=== PATIENT | male | born 1995 | race Caucasian/White ===

== ENCOUNTER 2022-07-05 18:58 | Observation (INO) | payer SELFPAY ==
--- NOTE | ~2022-07-05 | US_ITS ---
EXAMINATION: US carotid duplex BI DATE: 07/06/2022 08:03 INDICATION: Confusion. TECHNIQUE: Grayscale, color Doppler, and pulsed Doppler images of the cervical carotid arteries were obtained. The degree of vessel stenosis is placed in one of the following categories: normal, <50%, 5 0-69%, >=70% but less than near-occlusion, near-occlusion, or total occlusion. Note that percent sten osis relative to normal distal artery lumen diameter is indirectly measured from velocity measurement s as described by Yuri, et al. Radiology 2003; 229:340-346. COMPARISON: None. FINDINGS: RIGHT: The right common carotid artery (CCA) peak systolic velocity (PSV) is 92 cm/s. The right internal car otid artery (ICA) PSV is 73 cm/s. The right ICA end-diastolic velocity (EDV) is 19 cm/s. The right IC A/CCA PSV ratio is 0.8. Grayscale and color Doppler images yield an estimate of 0% diameter reduction from plaque in the ICA. There is antegrade flow in the right vertebral artery. LEFT: The left CCA PSV is 115 cm/s. The left ICA PSV is 76 cm/s. The left ICA EDV is 25 cm/s. The left ICA/ CCA PSV ratio is 0.7. Grayscale and color Doppler images yield an estimate of 0% diameter reduction f rom plaque in the ICA. There is antegrade flow in the left vertebral artery. IMPRESSION: 1. Normal internal carotid arteries. Reviewed, dictated and finalized at location A.
--- NOTE | ~2022-07-05 | CT_ITS ---
EXAMINATION: CT brain wo con DATE: 07/05/2022 20:17 INDICATION: confusion . TECHNIQUE: Computed tomography (CT) of the head was performed without intravenous contrast. The mA wa s adjusted according to patient size. Iterative reconstruction technique was employed. The dose-lengt h product was 605.33 mGy-cm. COMPARISON: None FINDINGS: No acute intracranial hemorrhage or extra-axial fluid collection. No hydrocephalus, mass, or herniation. No acute ischemic infarct. Unremarkable dural venous sinus attenuation. No acute osseous abnormality. The aerated spaces are clear. IMPRESSION: No acute intracranial process. Reviewed, dictated and finalized at location K.
--- NOTE | ~2022-07-05 | MR_ITS ---
EXAMINATION: MR brain/brain stem wo/w con DATE: 07/06/2022 07:45 INDICATION: Confusion. TECHNIQUE: Magnetic resonance imaging (MRI) of the brain and brainstem was performed without and with 15 mL MultiHance intravenous contrast. COMPARISON: Head CT 07/05/2022 FINDINGS: There is no intracranial hemorrhage, acute infarction, or abnormal intracranial mass lesion . The ventricles are normal in size. The orbits are normal. The paranasal sinuses are clear. The mast oid air cells are normal. IMPRESSION: 1. Normal brain. Reviewed, dictated and finalized at location A. IMPRESSION: 1. Normal brain.
[2022-07-05 19:10] VITALS: BP 198/111
[2022-07-05 19:11] VITALS: BP 186/112; PULSE 94; RESP 18; TEMP 36.8; O2SAT 100
[2022-07-05 19:32] VITALS: PULSE 85
[2022-07-05 20:00] LABS: Basophils Absolute Auto 0.1 K/mm3 (0.0-0.1); Basophils Percent Auto 0.8 % (0.2-1.2); Eosinophils Absolute Auto 0.2 K/mm3 (0-0.3); Eosinophils Percent Auto 3.1 % (0-4.4); Hematocrit 43.2 % (42.0-52.0); Hemoglobin 14.6 g/dL (14.0-18.0); Immature Granulocyte Absolute 0.02 K/mm3 (0.00-0.031); Immature Granulocyte Percent A 0.3 % (0-0.5); Lymphocytes Absolute Auto 1.63 K/mm3 (0.9-3.2); Lymphocytes Percent Auto 21.4 % (18.3-44.2); Mean Corpuscular HGB Conc 33.8 g/dl (32-36); Mean Corpuscular Hemoglobin 29.3 pg (26-34); Mean Corpuscular Volume 86.6 fl (80-100); Mean Platelet Volume 9.3 fl (7.4-10.4); Monocytes Absolute Auto 0.6 K/mm3 (0.1-0.6); Monocytes Percent Auto 8.4 % (2.6-8.5); Platelet Count Result 207 k/mm3 (150-375); Red Blood Count 4.99 M/mm3 (4.6-6.20); Red Cell Distribution Width 11.8 % (11.5-14.5); White Blood Count 7.6 K/mm3 (4.5-10.0)
--- NOTE | 2022-07-05 20:07 | ED.GENADULT ---
HPI - General Adult General Chief complaint: Unspecified Stated complaint: confusion Time Seen by Provider: 07/05/22 19:38 History of Present Illness HPI narrative: 26-year-old male presenting to the emergency department for evaluation of altered mental status and confusion. Patient states has this been ongoing for the last 3 days. Patient states he does have moments of clarity but then has moments of confusion. Patient states he has been sleeping more frequently and waking up in different locations. Patient states he did have loss of bladder control at night. Patient was alert and oriented for the nurses on initial evaluation but during my examination patient states he does not know the year or the president. 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 Patient denies any underlying psychiatric history. Patient has been taking doxycycline for the last 2 weeks for a folliculitis but denies any other drugs. Related Data Home Medications Medication Instructions Recorded Confirmed doxycycline monohydrate 100 mg 100 mg PO DAILY 07/05/22 07/06/22 capsule Allergies Allergy/AdvReac Type Severity Reaction Status Date / Time No Known Allergies Allergy Verified 07/05/22 19:19 Review of Systems Review of Systems: CONSTITUTIONAL: Denies fever, chills, or sweats. EYES: Denies visual changes, redness, or discharge. ENT: Denies rhinorrhea, congestion, sore throat, or otalgia. CARDIOVASCULAR: Denies chest pain, palpitations, or edema. RESPIRATORY: Denies cough or dyspnea. GASTROINTESTINAL: Denies abdominal pain, nausea, vomiting, or diarrhea. GENITOURINARY: Denies dysuria or hematuria. SKIN: Denies rash or itching. MUSCULOSKELETAL: Denies back pain, joint pain, or myalgia. NEUROLOGIC: Denies headache, numbness, or weakness. Increased confusion PSYCHIATRIC: See HPI ON LICENSE OF [facility] Surgical History Surgical History (Updated 07/05/22 @ 23:59 by Mariela Mejias NP) No pertinent past surgical history Family History Family History (Updated 07/06/22 @ 00:04 by Brian Valiente RN) Father Hypertension Mother Hypertension Grandparent Diabetes mellitus Social History Social History (Updated 07/06/22 @ 00:02 by Mariela Mejias NP) Social History: The patient is and he has 2 children. He has been dating as significant other for the last year. 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 He denies any tobacco marijuana or illicit drugs. He is a social drinker in rarely drinks. He does not have a durable power cardiology specialist for healthcare. Code status full code Smoking status: Never smoker Second hand tobacco smoke exposure: No Alcohol intake: current Drinks per week: 1 Substance use: never Spiritual care concerns: No Exam Narrative: APPEARANCE: Well appearing, no pain, no distress, well-nourished. HEAD: normocephalic, atraumatic. EYES: PERRLA/EOMI, conjunctivae clear. NOSE: Normal no drainage THROAT: Pharynx clear, no exudate. NECK: Supple. No adenopathy, no masses. RESPIRATORY: Airway patent, respirations nonlabored. Clear to auscultation bilaterally, no rales, rhonchi, wheezing. CARDIOVASCULAR: Regular rate and rhythm without murmurs rubs or gallops. ABDOMINAL: Soft, nontender, nondistended, normal bowel sounds MUSCULOSKELETAL: Moves all extremities. Strength/ROM intact, No edema, No calf tenderness. NEURO: Alert. Cranial nerves II through XII intact. Grossly intact. Patient disorientated SKIN: Warm, dry. Normal Color PSYCHIATRIC: Normal affect/mood. Course Course Emergency Course: Head CT was negative. Patient did have hypertension which was treated with hydralazine. Patient is afebrile with no leukocytosis. Patient's electrolytes are within normal limits. Patient's TSH was elevated but patient's free T4 was within normal limits. UA shows no evidence of urinary tract infection. Drug screen was negative. Pat
[2022-07-05 20:16] LABS: Lactic Acid Reflex 1.6 mmol/L (0.7-2.0)
[2022-07-05 20:17] LABS: Anion Gap 11 mmol/L (8-16); Bilirubin,Total 0.4 mg/dL (0.2-1.3); Blood Urea Nitrogen 15 mg/dL (9-20); Calcium 9.3 mg/dL (8.4-10.2); Carbon Dioxide 27 mmol/L (22-30); Chloride 103 mmol/L (98-107); Estimated CRCL calculation 80 ml/min; Estimated Glomerular Filt Rate > 60; Glucose 129 mg/dL (65-110); Potassium 3.7 mmol/L (3.4-5.0); Sodium 141 mmol/L (137-145)
[2022-07-05 20:18] LABS: Alanine Aminotransferase 22 U/L (6-50); Albumin Level 4.5 g/dL (3.5-5.1); Alkaline Phosphatase 54 U/L (38-126); Aspartate Amino Transferase 22 U/L (17-59)
[2022-07-05 20:28] LABS: Monoscreen Negative (Negative); Negative Monotest Control Negative (Negative); Positive Monotest Control Positive (Positive)
[2022-07-05 20:31] LABS: Appearance Urine Slightly Cloudy (Clear); Bilirubin Urine Negative (Negative); Blood Urine Negative (Negative); Color Urine Yellow (Yellow); Glucose Urine UA Negative (Negative); Ketones Urine Negative (Negative); Leukocyte Esterase Ur Negative LEU/UL (Negative); Nitrate Urine Negative (Negative); Protein Urine Negative (Negative); Specific Grav Ur >= 1.030 (1.001-1.035); Urobilinogen Urine 0.2 mg/dL (<2.0)
[2022-07-05 20:36] LABS: Mucus Urine Rare /lpf; RBC Urine 0-2 /hpf (0-2); WBC Urine 0-3 /hpf
[2022-07-05 20:37] LABS: Add Urine Microscopic? YES
[2022-07-05 20:40] LABS: Ammonia < 9 umol/L (9-30); Ethanol < 10 mg/dL (<10)
[2022-07-05 20:44] LABS: SARS-CoV-2 RNA PCR Negative
[2022-07-05 20:46] LABS: Amphetamine Screen Urine Negative (Negative); Barbiturate Screen Urine Negative (Negative); Benzodiazepines Screen Urine Negative (Negative); Cannabinoid Screen Urine Negative (Negative); Cocaine Screen Urine Negative (Negative); Methadone Screen Urine Negative (Negative); Opiate Screen Urine Negative (Negative); Phencyclidine Screen Urine Negative (Negative)
[2022-07-05] MEDS: SODIUM CHLORIDE 0.9% IV 1,000 ML 999 ML IV CONT (21:00)
[2022-07-05] MEDS: hydrALAZINE HCL 20 MG/ML VIAL 10 MG IV PUSH (21:31)
--- NOTE | 2022-07-05 21:37 | PC.NURSE ---
called lab @[phone] to add on Free T4 -[place]
[2022-07-05 22:03] LABS: Free T4 Free Thyroxine 1.01 ng/mL (0.78-2.19)
[2022-07-05 23:32] VITALS: BP 147/103; PULSE 78; RESP 18; O2SAT 98
--- NOTE | 2022-07-05 23:54 | PM.IMHP ---
H&P: HPI History of Present Illness Date/Time: 07/05/22 23:00 Chief Complaint: Possible seizure Narrative: This is a 26-year-old male patient who has no past medical history. 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 The patient was brought into the emergency room for evaluation of altered mental status and confusion. This is been going on for 3 days. Patient has some moments of clarity and then goes back to confusion. The patient recently was placed on doxycycline for folliculitis. The patient has been on doxycycline for the last 2 weeks. He states that he has been outside in the sun for several hours which makes him feel worse. He denies any other underlying psychiatric history. Initially the patient does not know who the president is or the date. Patient is now able to see who the president is but he thinks this is July. He is able to the site his name and his girlfriend's name and his date of . Earlier he had his children stated versus mixed up. The patient has been sleeping more frequently. He also had loss of bladder control at night. His TSH is 6.520. Ammonia is less than 9 otherwise his lab work is unremarkable. He is negative for COVID. Drug screen was negative. A consult was placed for neurology. Head CT was negative it shows no acute intracranial process. Patient was started on IV fluids and given hydralazine for blood pressure. The patient is complaining of a headache. The patient is being admitted for observation status on the date of service of 07/05/2022. Review of Systems Review of Systems: See HPI All systems reviewed & are unremarkable except as noted in HPI and below Constitutional: Constitutional: Reports as per HPI and Reports no additional constitutional complaints Eyes: Eyes: Reports as per HPI and Reports no additional eye complaints ENT: Reports system reviewed and no additional complaints, except as documented and Reports Normal hearing present Cardiovascular: Cardiovascular: Reports no additional cardiovascular complaints Respiratory: Respiratory: Reports no additional respiratory complaints and Reports no additional respiratory complaints Gastrointestinal: Gastrointestinal: Reports as per HPI and Reports no additional gastrointestinal complaints Musculoskeletal: Musculoskeletal: Reports no additional musculoskeletal complaints Integumentary/Breasts: Skin/Breast: Reports system reviewed and no additional complaints, except as docu and Reports as per HPI Neurologic: Reports system reviewed and no additional complaints, except as documented, Reports as per HPI and Reports Normal hearing present Psychiatric: Psychiatric: Reports no additional psychiatric complaints and Reports as per HPI Endocrine: Endocrine: Reports no additional endocrine complaints Hematologic/Lymphatic: Hematologic/Lymphatic: Reports no additional hematologic/lymphatic complaints Allergic/Immunologic: Allergic/Immunologic: Reports no additional allergic/immunologic complaints [facility] Surgical History Surgical History (Updated 07/05/22 @ 23:59 by Mariela Mejias NP) No pertinent past surgical history Family History Family History (Updated 07/06/22 @ 00:04 by Brian Valiente RN) Father Hypertension Mother Hypertension Grandparent Diabetes mellitus Social History Social History (Updated 07/06/22 @ 00:02 by Mariela Mejias NP) Social History: The patient is and he has 2 children. He has been dating as significant other for the last year. 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 He denies any tobacco marijuana or illicit drugs. He is a social drinker in rarely drinks. He does not have a durable power civil attorney for healthcare. Code status full code Smoking status: Never smoker Second hand tobacco smoke exposure: No Alcohol intake: current Drinks per week: 1 Substance use: never Spiritual care concerns: No Meds Home Me
[2022-07-06] VITALS (10 sets, daily range): BP systolic 143–166; BP diastolic 87–100; PULSE 58–86; RESP 14–16; TEMP 36.6–37.1; O2SAT 98–99; BMI 27.8
--- NOTE | 2022-07-06 | ECHO_ITS ---
Patient Info Name: Gucci Brown Age: 26 years : 1995 Gender: Male Ht: 68 in Wt: 182 lbs BSA: 2.01 m2 HR: 65 bpm BP: 143 / 87 mmHg Heart Rhythm: Sinus Rhythm Technical Quality: Fair Exam Date: 07/06/2022 8:32 AM Exam Location: [facility] Patient Status: Inpatient Admit Date: 07/05/2022 Staff Ordering Physician: Mariela Mejias NP Data Entry Operator: Carmencita Rosario RDCS Attending Provider: Miriam Alford DO Referring Physician: Magalie CARRANZA; Exam Type: CA echo doppler w bubble study Study Info Indications - neuro symptoms Complete two-dimensional, color flow and Doppler transthoracic echocardiogram is performed. Summary 1. Complete two-dimensional, color flow and Doppler transthoracic echocardiogram is performed. 2. Normal left ventricular size with borderline concentric hypertrophy. Left ventricular systolic function is at the lower end of normal, visual ejection fraction 55%. No segmental wall motion abnormalities. Diastolic dysfunction is present. 3. No significant valve disease. 4. Intact atrial septum; no evidence of intracardiac shunting by bubble study during normal respiration or Valsalva maneuver. 5. No pulmonary hypertension, estimated pulmonary arterial systolic pressure is 23 mmHg. 6. Normal sinus rhythm. Left Ventricle Left ventricular chamber dimension is normal. Left ventricular systolic function is normal, estimated at 55-60%. There is mildly increased left ventricular wall thickness. Left ventricular septal wall motion is normal. The left ventricular diastolic function is abnormal. Right Ventricle Right ventricular chamber dimension is normal. Right ventricular systolic function is normal. Left Atria Left atrial chamber dimension is normal. Right Atria Right atrial chamber dimension is normal. Aortic Valve The aortic valve is trileaflet. There is no aortic valve sclerosis. There is no aortic valve stenosis. There is no aortic valve regurgitation. Pulmonic Valve The pulmonic valve is normal. There is no pulmonic valve stenosis. There is trace pulmonic regurgitation. Mitral Valve The mitral valve has normal leaflets. There is no mitral valve stenosis. There is trace mitral valve regurgitation. Tricuspid Valve The tricuspid valve leaflets are normal. There is no significant tricuspid valve stenosis. There is trace tricuspid valve regurgitation. No pulmonary hypertension, estimated pulmonary arterial systolic pressure is 23 mmHg. Pericardium/Pleural The pericardium appears normal. There is no pericardial effusion. Inferior Vena Cava Normal inferior vena cava with >50% collapse upon inspiration consistent with Empty right atrial pressure, 10 mmHg. Aorta The aortic root size at the sinus of Valsalva is normal. The prox ascending aorta size is normal. Left Ventricular Outflow Tract Name Value Normal LVOT 2D LVOT Diameter 2.0 cm LVOT Doppler LVOT Peak Gradient 3 mmHg LVOT Mean Gradient 2 mmHg LVOT VTI 17 cm LVOT VTI/AV VT
--- NOTE | 2022-07-06 00:01 | ADMGEN ---
This patient, Gucci Brown, was admitted to [address] [place] [address] Room [facility] AT 2345. Patient/family oriented to hospital policies and general routines including ID bracelet, bed and alarms, visiting hours, pain management, procedures, bathroom and other care routines, personal items, smoking policy, room service/diet, and visiting hours. Information on how to activate the Rapid Response Team has been discussed. Patient/Family are encouraged to report perceived risks to care and to ask questions if they do not understand what they are told or what they should do.
[2022-07-06] MEDS: ACETAMINOPHEN/ASPIRIN/CAFFEINE 250-250-65 MG TABLET 1 TABLET PO (03:28)
--- NOTE | 2022-07-06 15:12 | PM.IMPN ---
Progress Note: A&P Assessment and Plan (1) Altered mental status: Qualifiers: Altered mental status type: disorientation Qualified Code(s): R41.0 - Disorientation, unspecified Code(s): R41.82 - Altered mental status, unspecified Status: Acute Assessment and Plan: Patient reports episodes of getting lost, decreased attention and possibly passing out since of last week. He also reports chronic headaches for years daily that he treats with Excedrine. Neurology consulted and appreciate recommendations. Head CT negative. MRI brain negative. EEG pending. Transthoracic echocardiogram pending. Carotid doppler without abnormality. Drug screen and UA unremarkable. Check B12 and lead level for possible work exposure. TSH elevated, but free T4 within normal limits. BP improved, but still elevated. Monitor neuro status. PRN Excedrine for headaches. Patient reports extensive STI evaluation this year and is currently in a monogomous relationship. He was told his ex- had herpes. MRI without evidence of encephalitis. (2) Hypertension: Qualifiers: Hypertension type: unspecified Qualified Code(s): I10 - Essential (primary) hypertension Code(s): I10 - Essential (primary) hypertension Status: Acute Assessment and Plan: BP was 198/111 on admission. BP 143/87-150/88. HR 85 today. Continue PRN hydralazine IV. Consider adding oral agent at discharge if persists. (3) Folliculitis: Code(s): L73.9 - Follicular disorder, unspecified Status: Acute Assessment and Plan: Present on admission. Started on unknown topical agent and doxycycline PO x 30 days and started approximately 2 weeks ago. Hold doxycycline for now. Plan CODE STATUS: FULL CODE Disposition: Home Time Spent With Patient Time with patient: 15 - 25 minutes Subjective Date/time seen: 07/06/22 15:12 Interval history: Patient found lying in bed. He reports chronic headaches throughout his whole head that are constant. He denies paresthesia, blurred or double vision. He denies chest pain, SOB, slurred speech, tremors, dysphagia or aphasia. Review of Systems Review of Systems: All systems reviewed & are unremarkable except as noted in HPI and below Exam Narrative: General: No acute distress.? Well-developed and well-groomed?adult male. No oxygen. Mental Status/Psych: Awake, alert and oriented to person and place with clear speech. Mildly anxious mood and affect. Pleasant and cooperative. Skin: Skin fair, warm, dry and intact. raised, red small ulcerations diffuse lower abdomen. Fair turgor.? HEENT: Normocephalic. Sclera is non-icteric. EOM intact. PERRL. Grossly normal hearing. Oral mucosa pink and moist. Oropharynx within normal limits. Neck: Supple. No JVD. Heart: S1 and S2 regular rate and rhythm. No murmurs, gallops, or rubs auscultated. NSR on telemetry. Chest: Respirations even and unlabored. Lung sounds are clear to auscultation in all lobes bilaterally without wheezes, rhonchi, or rales. Abdomen: Soft, obese and non-tender to palpation.? Bowel sounds present in all 4 quadrants. No guarding or grimacing. Extremities:? Grossly normal ROM all extremities. No edema. Radial and dorsalis pedis pulses +2 bilaterally. Neurological: No focal sensory or motor deficits. Intact heel to schulz, rapid alternating movements, and finger to nose. No facial droop. No pronator drift. Cranial nerves 2-12 intact. Objective Data Vital Signs Vital Signs: Vital Signs - 24 hr 07/05/22 19:11 07/05/22 19:32 07/05/22 19:10 Temperature 98.3 F Pulse Rate 94 85 Respiratory Rate 18 Blood Pressure 186/112 H 198/111 H Pulse Oximetry 100 Oxygen Delivery Room Air 07/05/22 23:32 07/06/22 00:00 07/06/22 01:34 Temperature Pulse Rate 78 68 Respiratory Rate 18 Blood Pressure 147/103 H Pulse Oximetry 98 Oxygen Delivery Room Air
--- NOTE | 2022-07-06 16:20 | WPDNEURCNPN ---
Assessment and Plan Assessment and plan (1) Altered mental status: Qualifiers: Altered mental status type: disorientation Qualified Code(s): R41.0 - Disorientation, unspecified Code(s): R41.82 - Altered mental status, unspecified Status: Acute Plan admitted for the complaints of the headache with change in the mental status initial CT scan of the head negative treated intravenously with the fluid along with the hydralazine for the control of the blood pressure neurological examination remains stable and so as the MRI of the brain negative will obtain the EEG and further recommendations accordingly Consult date: 07/06/22 Time Seen: 11:00 HPI: Gucci Brown is a 26 year old male admitted to the hospital for the complaints of change in the mental status of 72 hours duration but again with intermittent more confusion. 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 Patient has been taking some antibiotic, he is not allergic to any medications, he has never a smoker ,takes 1 drink per week ,initial vital signs were normal except the blood pressure 155/88 and routine labs was also normal drug screen was negative and TSH was 6.52 initial, CT scan of the head in the emergency room was negative with no evidence of space-occupying lesion or epidural or subdural or hydrocephalus subsequent brain MRI was also norm and carotid Doppler studies were negative Review of Systems Review of Systems: All systems reviewed & are unremarkable except as noted in HPI and below PMFSH Surgical History Surgical History (Updated 07/05/22 @ 23:59 by Mariela Mejias NP) No pertinent past surgical history Family History Family History (Updated 07/06/22 @ 00:04 by Brian Valiente RN) Father Hypertension Mother Hypertension Grandparent Diabetes mellitus Social History Social History (Updated 07/06/22 @ 00:02 by Mariela Mejias NP) Social History: The patient is and he has 2 children. He has been dating as significant other for the last year. 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 He denies any tobacco marijuana or illicit drugs. He is a social drinker in rarely drinks. He does not have a durable power erisa attorney for healthcare. Code status full code Smoking status: Never smoker Second hand tobacco smoke exposure: No Alcohol intake: current Drinks per week: 1 Substance use: never Spiritual care concerns: No Meds Home Medications and Allergies Home Medications Medication Instructions Recorded Confirmed Type doxycycline monohydrate 100 mg 100 mg PO DAILY 07/05/22 07/06/22 History capsule Allergies Allergy/AdvReac Type Severity Reaction Status Date / Time No Known Allergies Allergy Verified 07/05/22 19:19 Vital Signs Vital Signs - 24 hr 07/05/22 19:11 07/05/22 19:32 07/05/22 19:10 Temperature 36.8 C Pulse Rate 94 85 Respiratory Rate 18 Blood Pressure 186/112 H 198/111 H Pulse Oximetry 100 Oxygen Delivery Room Air 07/05/22 23:32 07/06/22 00:00 07/06/22 01:34 Temperature Pulse Rate 78 68 Respiratory Rate 18 Blood Pressure 147/103 H Pulse Oximetry 98 Oxygen Delivery Room Air 07/06/22 00:00 07/06/22 03:26 07/06/22 04:00 Temperature 36.6 C Pulse Rate 86 58 L Respiratory Rate 16 Blood Pressure 166/89 H 155/88 H Pulse Oximetry 98 Oxygen Delivery 07/06/22 05:41 07/06/22 12:00 07/06/22 14:00 Temperature 36.7 C 36.6 C Pulse Rate 65 68 85 Respiratory Rate 14 16 Blood Pressure 143/87 H 150/88 H Pulse Oximetry 99 99 Oxygen Delivery Exam Const: General: cooperative, healthy appearing, comfortable and no acute distress Nutritional Appea
--- NOTE | 2022-07-06 16:51 | PC.NURSE ---
Pt had MRI, EEG, and Echocardiogram done today. Pt is resting now and states he has no needs at this time. Pt has no complaints of pain. Pt able to be up independent. Pt has loved one at bedside.
[2022-07-07] VITALS: PULSE 57
[2022-07-07 04:00] VITALS: PULSE 49
[2022-07-07 06:00] VITALS: BP 138/93; PULSE 52; RESP 14; TEMP 36.7; O2SAT 100
[2022-07-07 06:43] LABS: Hematocrit 42.3 % (42.0-52.0); Hemoglobin 14.3 g/dL (14.0-18.0); Mean Corpuscular HGB Conc 33.8 g/dl (32-36); Mean Corpuscular Volume 85.8 fl (80-100); Mean Platelet Volume 9.3 fl (7.4-10.4); Platelet Count Result 210 k/mm3 (150-375); Red Blood Count 4.93 M/mm3 (4.6-6.20); Red Cell Distribution Width 11.9 % (11.5-14.5); White Blood Count 6.5 K/mm3 (4.5-10.0)
[2022-07-07 06:55] LABS: Alanine Aminotransferase 21 U/L (6-50); Alkaline Phosphatase 45 U/L (38-126); Anion Gap 10 mmol/L (8-16); Aspartate Amino Transferase 20 U/L (17-59); Bilirubin,Total 0.4 mg/dL (0.2-1.3); Blood Urea Nitrogen 14 mg/dL (9-20); Calcium 9.6 mg/dL (8.4-10.2); Carbon Dioxide 27 mmol/L (22-30); Chloride 101 mmol/L (98-107); Estimated CRCL calculation 80 ml/min; Estimated Glomerular Filt Rate > 60; Glucose 111 mg/dL (65-110); Sodium 138 mmol/L (137-145)
[2022-07-07 08:00] VITALS: PULSE 52
--- NOTE | 2022-07-07 11:10 | P.NEURO_ITS ---
Neurology EEG Report General Information Date of Study: 07/06/22 TEST eeg DIAGNOSIS possible seizures CONDITION OF RECORDING awake drowsy and sleep EEG NUMBER [id number] CLINICAL HISTORY patient reports he has been having episodes of confusion over the last couple of days and extremely tired EEG DESCRIPTION basic resting occipital frequency consists of low to medium voltage 8 to 10 hertz per 2nd alpha admixed with low-voltage 15 to 18 hertz per 2nd beta. Low- voltage beta activity seen diffusely admixed with waxing and waning posterior alpha rhythm. Bilateral symmetrical sleep activity seen during sleep. Hyperventilation not done. Photic stimulation not done. Throughout the tracing regular EKG artifact is noted. Non paroxysmal. Nonfocal. Nonlateralizing.
[2022-07-07] MEDS: lisinopriL 10 MG TABLET PO (11:15)
[2022-07-07 12:05] VITALS: PULSE 60
[2022-07-07 14:00] VITALS: BP 137/76; PULSE 60; RESP 18; TEMP 36.6; O2SAT 98
--- NOTE | 2022-07-07 14:14 | PM.DS ---
DS: Admitting Diagnosis Discharge Date 07/07/2022 1414 Admitting Diagnosis Altered mental status Hypertension DS: Discharge Diagnosis Discharge Diagnosis (1) Altered mental status: Qualifiers: Altered mental status type: disorientation Qualified Code(s): R41.0 - Disorientation, unspecified Code(s): R41.82 - Altered mental status, unspecified Status: Acute Assessment and Plan: Patient reports episodes of getting lost, decreased attention and possibly passing out since of last week. He also reports chronic headaches for years daily that he treats with Excedrine. Neurology consulted, case was discussed by myself and symptoms were not thought to be secondary to seizure disorder or underlying neurologic disease. Head CT negative. MRI brain negative. EEG did not suggest seizure disorder. Transthoracic echocardiogram borderline LVH, ungraded diastolic dysfunction and EF 55%. Carotid doppler without abnormality. Drug screen and UA unremarkable. Vitamin B12 363 and low normal. Lead level for possible work exposure pending at discharge. TSH elevated, but free T4 within normal limits. BP elevated 140-160/90s. Lisinopril 10 mg PO started. PRN Excedrine for headaches. Patient reports extensive STI evaluation this year and is currently in a monogomous relationship. He was told his ex- had herpes. MRI without evidence of encephalitis. C/o daytime fatigue and chronic stress - he would likely benefit from outpatient sleep study. I will defer to his PCP given he is located in [facility] and will likely want local testing. (2) Hypertension: Qualifiers: Hypertension type: unspecified Qualified Code(s): I10 - Essential (primary) hypertension Code(s): I10 - Essential (primary) hypertension Status: Acute Assessment and Plan: BP was 198/111 on admission. BP 143/87-160/88. HR 85 today. Continue PRN hydralazine IV given x1. Lisinopril 10 mg PO daily added. Borderline LVH noted. (3) Folliculitis: Code(s): L73.9 - Follicular disorder, unspecified Status: Acute Assessment and Plan: Present on admission. Started on unknown topical agent and doxycycline PO x 30 days and started approximately 2 weeks ago. doxycycline resumed at discharge. Follow up outpatient with prescribing provider. DS: Summary Hospital Course Reason for hospitalization: Altered mental status. Hospital Course: Gucci Brown is a 26-year-old male patient who has no past medical history.? 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 The patient was brought into the emergency room for evaluation of altered mental status and confusion.? This is been going on since of last week.? Patient has some moments of clarity and then goes back to confusion.? He endorses that this is often noted as zoning off. The patient recently was placed on doxycycline for folliculitis.? The patient has been on doxycycline for the last 2 weeks.? He states that he has been outside in the sun for several hours which makes him feel worse.? He denies any other underlying psychiatric history.? He was noted to be forgetful of president and the date.? He was able to state his name and his girlfriend's name, as well as his date of .? Earlier, however, he had his children mixed up.? The patient has been sleeping more frequently.? He also had loss of bladder control at night.? His TSH is 6.520.? Ammonia is less than 9 otherwise his lab work is unremarkable.? He is negative for COVID.? Drug screen was negative.? A consult was placed for neurology.? Head CT was negative it shows no acute intracranial process.? BP was elevated 198/111. Patient was started on IV fluids and given hydralazine for blood pressure.? The patient is complaining of a headache.? The patient was referred for observation and evaluation of altered mental status. Neurology was consulted. Shaji
[2022-07-12 10:02] LABS: Collection Sample Venous; Lead, Blood <1.0
== END 2022-07-07 15:35 | disposition home or self-care (01) ==
LOC: ANHED 19:38 → ANH3MED 07-06 06:35
PROVIDERS: Admitting Provider Internal Medicine; Emergency Provider Emergency Medicine; Visit Provider Nurse Practitioner Family
DX: R41.82 Altered mental status, unspecified (principal); I11.9 Hypertensive heart disease without heart failure; L73.9 Follicular disorder, unspecified; R94.6 Abnormal results of thyroid function studies; R32 Unspecified urinary incontinence; Z20.822 Contact with and (suspected) exposure to COVID-19; Z79.899 Other long term (current) drug therapy
CPT/HCPCS: 36415; 70450; 70553; 80053; 80307; 81001; 82140; 82607; 82746; 83605; 83655; 84439; 84443; 85025; 85027; 86308; 93306; 93880; 95816; 96361; 96374; 96375; 99285; A9270; A9577; C9803; G0378; J0360; J7030; U0003; U0005